=== PATIENT | female | born 1985 | race Caucasian/White ===

== ENCOUNTER 2022-07-25 22:25 | Inpatient (IN) | payer MEDICARE, MEDICAID, SELFPAY ==
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
[2022-07-25 22:51] VITALS: BP 155/96; PULSE 97; RESP 16; TEMP 36.6
[2022-07-25 23:03] VITALS: BMI 21.6
--- NOTE | 2022-07-26 02:30 | PC.ADMIT ---
Patient is a 36 year old Chilean speaking woman that was seen at [facility] secondary to suicide attempt she reported that she took less than a palmful of Flexeril .She arrived on [facility] at 22:30 on 07/25/22 via ambulance stretcher. She denies previous admission to behavioral health. CV was signed and covid negative . She is pleasant and cooperative She has a history of substance abuse and a long standing chronic illnesses including liver disease and kidney failure which she said she was in the hospital on hospice for 5 months but was able to be released.
[2022-07-26 08:35] VITALS: BP 115/57; PULSE 71; RESP 16; TEMP 36.8; O2SAT 100
[2022-07-26] MEDS: Nicotine 14 MG PATCH.TD24 TRANSDERMA (11:32)
[2022-07-26] MEDS: Cyclobenzaprine HCl 5 MG TABLET PO (12:51)
[2022-07-26] MEDS: hydrOXYzine HCL 25 MG TABLET PO ×2 (12:51→17:11)
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
[2022-07-26 13:30] LABS: MANUAL DIFF FLAG NO
[2022-07-26 13:38] LABS: Basophils Percent Auto 0.8 % (0-2); Eosinophils Absolute Auto 0.2 X10*3/uL (0.0-0.4); Eosinophils Percent Auto 4.4 % (0-4); Hematocrit 41.6 % (37.0-47.0); Hemoglobin 14.8 g/dl (12.0-16.0); Imm Gran Abs Auto 0.03 X10*3/uL (0.00-0.03); Imm Gran Pct Auto 0.8 % (0.0-0.4); Lymphocytes Absolute Auto 0.8 X10*3/uL (1.2-4.9); Lymphocytes Percent Auto 22.8 % (20-40); Mean Corpuscular HGB Conc 35.6 g/dl (31.0-35.0); Mean Corpuscular Hemoglobin 36.7 pg (27.0-33.0); Mean Corpuscular Volume 103.2 fL (80.0-98.0); Mean Platelet Volume 10.3 fL (9.4-12.3); Monocytes Absolute Auto 0.3 X10*3/uL (0.1-1.2); Monocytes Percent Auto 7.7 % (2-11); Neutrophils Absolute Auto 2.3 x10*3/uL (2.0-8.3); Neutrophils Percent Auto 63.5 % (45-73); Platelet Count 129 X10*3/uL (160-400); Red Blood Count 4.03 X10*6/uL (4.20-5.50); Red Cell Distribution Width 13.3 % (11.0-16.0); White Blood Count 3.6 X10*3/uL (4.8-10.8)
[2022-07-26 14:22] LABS: Alanine Aminotransferase 128 U/L (0-31); Albumin Level 3.9 g/dL (3.5-5.0); Alkaline Phosphatase 82 U/L (39-117); Aspartate Amino Transferase 138 U/L (5-31); Bilirubin Direct 0.2 mg/dL (0.0-0.5); Bilirubin Total 0.9 mg/dL (0.0-1.0); Total Protein 6.4 g/dL (6.5-8.0)
--- NOTE | 2022-07-26 15:09 | PC.NURSE ---
Patient has pre-existing conditions resulting in use of a mat under her mattress. Medical bed may be required-per MD
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
[2022-07-26] MEDS: Albuterol Sulfate 90 MCG 8 GM INHALER 2 PUFF INHALE (17:30)
[2022-07-26 18:00] VITALS: BP 150/87; PULSE 107; RESP 16; TEMP 37.5; O2SAT 100
[2022-07-26] MEDS: Mirtazapine 7.5 MG TABLET PO (20:30)
[2022-07-26] MEDS: Gabapentin 600 MG TABLET PO (20:30)
[2022-07-26] MEDS: traZODone HCL 50 MG TABLET PO ×2 (20:30→23:06)
[2022-07-27 06:00] VITALS: BP 121/58; PULSE 97; RESP 18; TEMP 36.8; O2SAT 100
[2022-07-27] MEDS: Lidocaine 4 % Patch ADH..PATCH 1 PATCH TRANSDERMA (08:50)
[2022-07-27] MEDS: Nicotine 14 MG PATCH.TD24 TRANSDERMA (08:50)
[2022-07-27] MEDS: Cyclobenzaprine HCl 5 MG TABLET PO ×2 (09:35→22:12)
[2022-07-27] MEDS: Ibuprofen 400 MG TABLET PO (09:37)
[2022-07-27 09:39] LABS: Estimated Average Glucose 82 mg/dL; Hemoglobin A1c % 4.5 %
[2022-07-27 10:07] LABS: HBS Num1 1.04 mIU/mL (0-7.99); HBc Num1 0.07 S/CO (0.00-0.79); HBsAGNum1 0.24 S/CO (0.00-0.99); HIV AB/AG Nonreactive (Nonreactive); HIV Num 1 0.07 S/CO (0.00-0.99); Hepatitis B Core Antibody Nonreactive (Nonreactive); Hepatitis B Surface Antigen Negative (Negative); ~HepC Num1 0.04 S/CO (0.00-0.79); ~Hepatitis B Surface Antibody NONREACTIVE (Nonreactive); ~Hepatitis C Antibody Nonreactive (Nonreactive)
[2022-07-27 10:14] LABS: Alanine Aminotransferase 137 U/L (0-31); Albumin Level 3.9 g/dL (3.5-5.0); Alkaline Phosphatase 86 U/L (39-117); Anion Gap 11 (12-20); Aspartate Amino Transferase 126 U/L (5-31); Bilirubin Total 0.6 mg/dL (0.0-1.0); Blood Urea Nitrogen 10 mg/dL (9-16); Calcium 9.4 mg/dL (8.4-10.2); Carbon Dioxide 28 mmol/L (22-29); Chloride 105 mmol/L (96-108); Cholesterol 201 mg/dL; Creatinine Clr Calc Pharmacy 71.9; Estimated Glomerular Filt Rate > 60; Glucose Fasting 107 mg/dL (60-99); HDL Cholesterol 94 mg/dL; LDL Cholesterol Calculated 94 mg/dl; Potassium 4.1 mmol/L (3.3-5.1); Sodium 140 mmol/L (135-145); Thyroid Stimulating Hormone 1.64 uIU/mL (0.32-4.0); Total Protein 5.9 g/dL (6.5-8.0); Triglycerides 65 mg/dL
[2022-07-27 10:25] LABS: Folate 9.2 ng/mL (> or = 4.0); Vitamin B12 393 pg/mL (200-900)
[2022-07-27 10:32] LABS: Folate 9.1 ng/mL (> or = 4.0); Vitamin B12 421 pg/mL (200-900)
[2022-07-27] MEDS: Albuterol Sulfate 90 MCG 8 GM INHALER 2 PUFF INHALE ×2 (14:04→19:47)
[2022-07-27 16:29] VITALS: BP 125/75; PULSE 101; TEMP 36.6; O2SAT 100
[2022-07-27] MEDS: hydrOXYzine HCL 25 MG TABLET PO (17:11)
--- NOTE | 2022-07-27 18:24 | HO.PSYCHPN ---
Subjective Subjective Date of Service: 07/27/22 Reason For Visit: other specified depressive disorder, alcohol use Subjective Notes: Conditional Voluntary Healthcare Proxy: No Guardianship: No Medical Problems Affecting Mental Status: No Interim History: Reports evening anxiety and insomnia. Discussed Prazosin trial. Discussed concerns about the loss of her children and potential loss of her home. Ex-husbands sister who took the children is a poor support pt reports-and she feels is angry with her. Medication Compliance: Yes Side effects from medications: No Attending Groups: Intermittent Review of Systems Acute medical concerns: No Medical Review of Systems: unchanged Mental Status Exam Mental Status Exam Patient Appearance: Appropriate Patient Orientation: Person, Place, Time and Situation Level of Consciousness: Alert Patient Behavior: Appropriate, Talkative, Cooperative and Good Eye Contact Mood Description: Depressed and Flat Affect Description: Flat Patient Cognition Impaired: No Ability to Follow Directions: Good Speech Pattern: Spontaneous Speech Memory Description: Intact and Episodic Impaired Hallucinations: None Delusions: Not Present Perceptual Disturbances: Depersonalization and Derealization Thought Process: Rumination Thought Content: positive for Suicidal Ideation Depressive Symptoms: Increased Anxiety, Insomnia, Diff. Making Decisions, Hopelessness, Unhappiness, Increased Fatigue, Low Self Esteem and Loss of Energy Judgement: Poor Diagnostics Vital Signs (24Hr): Vital Signs - 24 hr 07/27/22 06:00 07/27/22 16:29 Temperature 98.3 F 97.9 F Pulse Rate 97 101 H Respiratory Rate 18 Blood Pressure 121/58 L 125/75 Pulse Oximetry 100 100 Oxygen Delivery Method Room Air Room Air BMI result Body Mass Index 21.6 Labs Results: 07/26/22 13:26 07/27/22 08:37 Labs: Laboratory Results - last 48 hr 07/26/22 07/26/22 07/26/22 13:26 13:26 13:26 WBC 3.6 L RBC 4.03 L Hgb 14.8 Hct 41.6 MCV 103.2 H MCH 36.7 H MCHC 35.6 H RDW 13.3 Plt Count 129 L MPV 10.3 Immature Gran % (Auto) 0.8 H Neut % (Auto) 63.5 Lymph % (Auto) 22.8 [place] % (Auto) 7.7 Eos % (Auto) 4.4 H Baso % (Auto) 0.8 Lymph # (Auto) 0.8 L [place] # (Auto) 0.3 Eos # (Auto) 0.2 Baso # (Auto) 0.0 Abs Immat Gran (auto) 0.03 Absolute Neuts (auto) 2.3 Absolute Nucleated RBC 0.000 Nucleated RBC % (auto) 0.0 Sodium Potassium Chloride Carbon Dioxide Anion Gap BUN Creatinine Estim Creat Clear Calc Estimated GFR Fasting Glucose Estimat Average Glucose Hemoglobin A1c % Calcium Total Bilirubin 0.9 Direct Bilirubin 0.2 AST 138 H ALT 128 H Alkaline Phosphatase 82 Total Protein 6.4 L Albumin 3.9 Triglycerides Cholesterol LDL Cholesterol, Calc HDL Cholesterol Vitamin B12 TNP Folate TNP TSH Hep Bs Antigen Hep Bs Antibody Hep B Core Total Ab Hepatitis C Ab (EIA) HIV 1&2 Ab/P24 Ag 4thGn 07/27/22 07/27/22 07/27/22 08:37 08:37 08:37 WBC RBC Hgb Hct MCV MCH MCHC RDW Plt Count MPV Immature Gran % (Auto) Neut % (Auto) Lymph % (Auto) [place] % (Auto) Eos % (Auto) Baso % (Auto) Lymph # (Auto) [place] # (Auto) Eos # (Auto) Baso # (Auto) Abs Immat Gran (auto) Absolute Neuts (auto) Absolute Nucleated RBC Nucleated RBC % (auto) Sodium 140 Potassium 4.1 Chloride 105 Carbon Dioxide 28 Anion Gap 11 L BUN 10 Creatinine 0.73 Estim Creat Clear Calc 71.9 Estimated GFR > 60 Fasting Glucose 107 H Estimat Average Glucose Hemoglobin A1c % Calcium 9.4 Total Bilirubin 0.6 Direct Bilirubin AST 126 H ALT 137 H Alkaline Phosphatase 86 Total Protein 5.9 L Albumin 3.9 Triglycerides 65 Cholesterol 201 LDL Cholesterol, Calc 94 HDL Cholesterol 94 Vitamin B12 421 Folate 9.1 TSH 1.64 Hep Bs Antigen Negative Hep Bs Antibody NONREACTIVE Hep B Core Total Ab Nonreactive Hepatitis C Ab (EIA) Nonreactive HIV 1&2 Ab/P24 Ag 4thGn Nonreactive 07/27/22 07/27/22 08:37 08:37 WBC RBC Hgb Hct MCV MCH MCHC RDW Plt Count MPV Immature Gran % (Auto) Neut % (Auto) Lymph % (Auto) [place] % (Auto) Eos % (Auto) Baso % (Auto) Lymph # (Auto) [place] # (Auto) Eos # (Auto) Baso # (Auto) Abs Immat Gran (auto) Absolute Neuts (auto) Absolute Nucleated RBC Nucleated RBC % (auto) Sodium Potassium Chloride Carbon Dioxide Anion Gap BUN Creatinine Estim Creat Clear Calc Estimated GFR Fasting Glucose Estimat Average Glucose 82 Hemoglobin A1c % 4.5 Calcium Total Bilirubin Direct Bilirubin AST ALT Alkaline Phosphatase Total Protein Albumin Triglycerides Cholesterol LDL Cholesterol, Calc HDL Cholesterol Vitamin B12 393 Folate 9.2 TSH Hep Bs Antigen Hep Bs Antibody Hep B Core Total Ab Hepatitis C Ab (EIA) HIV 1&2 Ab/P24 Ag 4thGn Medications Medications Current Medications Al Hydroxide/Mg Hydroxide (Magnesium Hydrox/Alum Hydrox 30 Ml Oral.Susp) 30 ml PO Q6H PRN PRN Reason: Heartburn/Nausea Albuterol Sulfate (Albuterol Sulfate 90 Mcg 8 Gm Inhaler) 2 puff INHALE RQ4H PRN PRN Reason: shorss of breath or wheez Last Admin: 07/27/22 14:04 Dose: 2 puff Cyclobenzaprine HCl (Cyclobenzaprine Hcl 5 Mg Tablet) 5 mg PO TID PRN PRN Reason: Back Spasm Last Admin: 07/27/22 09:35 Dose: 5 mg Gabapentin (Gabapentin 600 Mg Tablet) 600 mg PO BEDTIME TA Last Admin: 07/26/22 20:30 Dose: 600 mg Hydroxyzine HCl (Hydroxyzine Hcl 25 Mg Tablet) 25 mg PO Q6H PRN PRN Reason: Anxiety Last Admin: 07/27/22 17:11 Dose: 25 mg Ibuprofen (Ibuprofen 400 Mg Tablet) 400 mg PO Q6H PRN PRN Reason: pain/fever Last Admin: 07/27/22 09:37 Dose: 400 mg Lidocaine (Lidocaine 4 % Patch Adh..Patch) 1 patch TRANSDERMA DAILY [facility]; Protocol Last Admin: 07/27/22 08:50 Dose: 1 patch Lorazepam (Lorazepam 1 Mg Tablet) 1 mg PO Q2H PRN PRN Reason: CIWA 8-11 Lorazepam (Lorazepam 1 Mg Tablet) 2 mg PO Q2H PRN PRN Reason: CIWA 12-15 Lorazepam (Lorazepam 1 Mg Tablet) 3 mg PO Q2H PRN PRN Reason: CIWA > 15 and call Magnesium Hydroxide (Milk Of Magnesia 30 Ml Oral.Susp) 30 ml PO DAILY PRN PRN Reason: Constipation Mirtazapine (Mirtazapine 7.5 Mg Tablet) 7.5 mg PO BEDTIME TA Last Admin: 07/26/22 20:30 Dose: 7.5 mg Nicotine (Nicotine 14 Mg Patch.Td24) 14 mg TRANSDERMA DAILY TA Last Admin: 07/27/22 08:50 Dose: 14 mg Prazosin HCl (Prazosin Hcl 1 Mg Capsule) 1 mg PO BEDTIME TA; Protocol Trazodone HCl (Trazodone Hcl 50 Mg Tablet) 50 mg PO BEDTIME PRN PRN Reason: Insomnia Last Admin: 07/26/22 23:06 Dose: 50 mg Allergies Allergies Allergy/AdvReac Type Severity Reaction Status Date / Time acetaminophen Allergy Unknown Unknown Verified 07/25/22 23:01 aspirin Allergy Unknown Verified 07/25/22 23:02 latex Allergy Unknown Verified 07/25/22 23:02 morphine Allergy Unknown Verified 07/25/22 23:02 Sulfa (Sulfonamide Allergy Unknown Verified 07/25/22 23:02 Antibiotics) Assessment & Plan Assessment & Plan (1) Alcohol use disorder, severe, dependence: Status: Acute Code(s): F10.20 - Alcohol dependence, uncomplicated (2) PTSD (post-traumatic stress disorder): Status: Acute Code(s): F43.10 - Post-traumatic stress disorder, unspecified (3) Recurrent major depression-severe: Status: Acute Code(s): F33.2 - Major depressive disorder, recurrent severe without psychotic features Plan 36 yo female, hx of alcohol use disorder, PTSD, depression, s/p overdose of flexoril. Tox positive for alcohol, cocaine, opiates, oxycodone. Several stressors. 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 She has just completed a 5 month rehab with admission and discharge from hospice for chronic liver disease. Plan: Re-establish current regime. Call to [facility]-they last filled for pt 2020. Continue albuterol, gabapentin, mirtazapine Collateral contact with pt's mother completed. Await further labs 07/28/22: Prazosin 1 mg hs I spent minutes with the patient and/or on the patient floor today, greater than?50% of which was spent counseling/coordinating care. Patient educated on: medication risk/benefits and therapeutic strategies Informed Consent: further education needed Reason for contiued inpatient stay Substantial Risk for: med/psych decompensation Time Spent With Patient Time: Total time managing care of this patient today __30__ minutes.
[2022-07-27] MEDS: Prazosin HCL 1 MG CAPSULE PO (22:10)
[2022-07-27] MEDS: Mirtazapine 7.5 MG TABLET PO (22:11)
[2022-07-27] MEDS: Gabapentin 600 MG TABLET PO (22:11)
[2022-07-27 22:18] VITALS: BP 141/84
[2022-07-28 08:30] VITALS: BP 117/66; PULSE 88; TEMP 37.1
[2022-07-28] MEDS: Nicotine 14 MG PATCH.TD24 TRANSDERMA (08:53)
[2022-07-28] MEDS: Lidocaine 4 % Patch ADH..PATCH 1 PATCH TRANSDERMA (08:54)
[2022-07-28] MEDS: hydrOXYzine HCL 25 MG TABLET PO (11:10)
[2022-07-28] MEDS: Cyclobenzaprine HCl 5 MG TABLET PO ×2 (11:10→22:01)
[2022-07-28] MEDS: Albuterol Sulfate 90 MCG 8 GM INHALER 2 PUFF INHALE ×2 (13:18→20:51)
[2022-07-28 18:00] VITALS: BP 133/76; PULSE 109; TEMP 36.8; O2SAT 100
--- NOTE | 2022-07-28 18:48 | HO.PSYCHPN ---
Subjective Subjective Date of Service: 07/28/22 Reason For Visit: other specified depressive disorder, alcohol use Subjective Notes: Conditional Voluntary and 3 Day Healthcare Proxy: No Guardianship: No Medical Problems Affecting Mental Status: No Interim History: Discussion of three day notice, longer term treatment, section 35 and pt's goals. Discussed her will to live, return to her children. Believes alliance with out patient resources-therapy, psychiatry will be the most helpful-therapy especially. Discussed discharge vs Section 35 vs residential placement, pros, cons of each treatment choice. Medication Compliance: Yes Side effects from medications: No Attending Groups: Intermittent Review of Systems Acute medical concerns: No Medical Review of Systems: unchanged Mental Status Exam Mental Status Exam Patient Appearance: Appropriate Patient Orientation: Person, Place, Time and Situation Level of Consciousness: Alert Patient Behavior: Appropriate, Talkative, Cooperative and Good Eye Contact Mood Description: Depressed and Flat Affect Description: Flat Patient Cognition Impaired: No Ability to Follow Directions: Good Speech Pattern: Spontaneous Speech Memory Description: Intact and Episodic Impaired Hallucinations: None Delusions: Not Present Perceptual Disturbances: Depersonalization and Derealization Thought Process: Rumination Thought Content: positive for Suicidal Ideation Depressive Symptoms: Increased Anxiety, Insomnia, Diff. Making Decisions, Hopelessness, Unhappiness, Increased Fatigue, Low Self Esteem and Loss of Energy Judgement: Poor Diagnostics Vital Signs (24Hr): Vital Signs - 24 hr 07/27/22 22:18 07/28/22 08:30 Temperature 98.7 F Pulse Rate 88 Blood Pressure 141/84 H 117/66 BMI result Body Mass Index 21.6 Labs Results: 07/26/22 13:26 07/27/22 08:37 Labs: Laboratory Results - last 48 hr 07/27/22 07/27/22 07/27/22 08:37 08:37 08:37 Sodium 140 Potassium 4.1 Chloride 105 Carbon Dioxide 28 Anion Gap 11 L BUN 10 Creatinine 0.73 Estim Creat Clear Calc 71.9 Estimated GFR > 60 Fasting Glucose 107 H Estimat Average Glucose Hemoglobin A1c % Calcium 9.4 Total Bilirubin 0.6 AST 126 H ALT 137 H Alkaline Phosphatase 86 Total Protein 5.9 L Albumin 3.9 Triglycerides 65 Cholesterol 201 LDL Cholesterol, Calc 94 HDL Cholesterol 94 Vitamin B12 421 Folate 9.1 TSH 1.64 Hep Bs Antigen Negative Hep Bs Antibody NONREACTIVE Hep B Core Total Ab Nonreactive Hepatitis C Ab (EIA) Nonreactive HIV 1&2 Ab/P24 Ag 4thGn Nonreactive 07/27/22 07/27/22 08:37 08:37 Sodium Potassium Chloride Carbon Dioxide Anion Gap BUN Creatinine Estim Creat Clear Calc Estimated GFR Fasting Glucose Estimat Average Glucose 82 Hemoglobin A1c % 4.5 Calcium Total Bilirubin AST ALT Alkaline Phosphatase Total Protein Albumin Triglycerides Cholesterol LDL Cholesterol, Calc HDL Cholesterol Vitamin B12 393 Folate 9.2 TSH Hep Bs Antigen Hep Bs Antibody Hep B Core Total Ab Hepatitis C Ab (EIA) HIV 1&2 Ab/P24 Ag 4thGn Imaging Radiology Impressions: ITS Impressions Knee X-Ray 07/26/22 13:55 IMPRESSION: Normal right knee. Ribs X-Ray 07/26/22 13:55 IMPRESSION: Clear lungs. No focal rib abnormality identified. Medications Medications Current Medications Al Hydroxide/Mg Hydroxide (Magnesium Hydrox/Alum Hydrox 30 Ml Oral.Susp) 30 ml PO Q6H PRN PRN Reason: Heartburn/Nausea Albuterol Sulfate (Albuterol Sulfate 90 Mcg 8 Gm Inhaler) 2 puff INHALE RQ4H PRN PRN Reason: shorss of breath or wheez Last Admin: 07/28/22 13:18 Dose: 2 puff Cyclobenzaprine HCl (Cyclobenzaprine Hcl 5 Mg Tablet) 5 mg PO TID PRN PRN Reason: Back Spasm Last Admin: 07/28/22 11:10 Dose: 5 mg Gabapentin (Gabapentin 600 Mg Tablet) 600 mg PO BEDTIME TA Last Admin: 07/27/22 22:11 Dose: 600 mg Hydroxyzine HCl (Hydroxyzine Hcl 25 Mg Tablet) 25 mg PO Q6H PRN PRN Reason: Anxiety Last Admin: 07/28/22 11:10 Dose: 25 mg Ibuprofen (Ibuprofen 400 Mg Tablet) 400 mg PO Q6H PRN PRN Reason: pain/fever Last Admin: 07/27/22 09:37 Dose: 400 mg Lidocaine (Lidocaine 4 % Patch Adh..Patch) 1 patch TRANSDERMA DAILY TA; Protocol Last Admin: 07/28/22 08:54 Dose: 1 patch Lorazepam (Lorazepam 1 Mg Tablet) 1 mg PO Q2H PRN PRN Reason: CIWA 8-11 Lorazepam (Lorazepam 1 Mg Tablet) 2 mg PO Q2H PRN PRN Reason: CIWA 12-15 Lorazepam (Lorazepam 1 Mg Tablet) 3 mg PO Q2H PRN PRN Reason: CIWA > 15 and call Magnesium Hydroxide (Milk Of Magnesia 30 Ml Oral.Susp) 30 ml PO DAILY PRN PRN Reason: Constipation Mirtazapine (Mirtazapine 7.5 Mg Tablet) 7.5 mg PO BEDTIME TA Last Admin: 07/27/22 22:11 Dose: 7.5 mg Nicotine (Nicotine 14 Mg Patch.Td24) 14 mg TRANSDERMA DAILY TA Last Admin: 07/28/22 08:53 Dose: 14 mg Prazosin HCl (Prazosin Hcl 1 Mg Capsule) 1 mg PO BEDTIME TA; Protocol Last Admin: 07/27/22 22:10 Dose: 1 mg Trazodone HCl (Trazodone Hcl 50 Mg Tablet) 50 mg PO BEDTIME PRN PRN Reason: Insomnia Last Admin: 07/26/22 23:06 Dose: 50 mg Allergies Allergies Allergy/AdvReac Type Severity Reaction Status Date / Time acetaminophen Allergy Unknown Unknown Verified 07/25/22 23:01 aspirin Allergy Unknown Verified 07/25/22 23:02 latex Allergy Unknown Verified 07/25/22 23:02 morphine Allergy Unknown Verified 07/25/22 23:02 Sulfa (Sulfonamide Allergy Unknown Verified 07/25/22 23:02 Antibiotics) Assessment & Plan Assessment & Plan (1) Alcohol use disorder, severe, dependence: Status: Acute Code(s): F10.20 - Alcohol dependence, uncomplicated (2) PTSD (post-traumatic stress disorder): Status: Acute Code(s): F43.10 - Post-traumatic stress disorder, unspecified (3) Recurrent major depression-severe: Status: Acute Code(s): F33.2 - Major depressive disorder, recurrent severe without psychotic features Plan 36 yo female, hx of alcohol use disorder, PTSD, depression, s/p overdose of flexoril. Tox positive for alcohol, cocaine, opiates, oxycodone. Several stressors. Pt has been non compliant with medications [employer]. She has just completed a 5 month rehab with admission and discharge from hospice for chronic liver disease. Plan: Re-establish current regime. Call to [facility]-they last filled for pt 2020. Continue albuterol, gabapentin, mirtazapine Collateral contact with pt's mother completed. Await further labs 07/27/22: Prazosin 1 mg hs 07/28/22: No changes in regime-Planning for discharge 07/29 as TDN expires. Patient educated on: diagnosis, medication risk/benefits, substance abuse and therapeutic strategies Informed Consent: understands and further education needed Reason for contiued inpatient stay Substantial Risk for: rapid decompensation and med/psych decompensation Time Spent With Patient Time: Total time managing care of this patient today __35__ minutes.
[2022-07-28] MEDS: Gabapentin 600 MG TABLET PO (22:02)
[2022-07-28] MEDS: Mirtazapine 7.5 MG TABLET PO (22:02)
[2022-07-28] MEDS: Prazosin HCL 1 MG CAPSULE PO (22:02)
[2022-07-29 08:55] VITALS: BP 123/78; PULSE 99; TEMP 37
[2022-07-29] MEDS: Nicotine 14 MG PATCH.TD24 TRANSDERMA (09:06)
[2022-07-29] MEDS: Lidocaine 4 % Patch ADH..PATCH 1 PATCH TRANSDERMA (09:06)
--- NOTE | 2022-07-29 12:05 | P.DS_ITS ---
DS: Providers Provider Date of Service: 07/29/22 Date of admission: 07/25/22 22:25 Date of discharge: 07/29/22 Primary care physician: Unknown Physician Admitting clinician: Naomi Amador Attending physician on admission: Ranulfo Salazar Consults: 07/26/22 00:43 Consult to Hospitalist Routine Consulting Provider: Hospitalist Reason For Exam: new H&P Attending physician on discharge: Ranulfo Salazar Discharging clinician: Naomi Amador DS: Diagnosis Discharge Diagnosis (1) Alcohol use disorder, severe, dependence: Status: Acute (2) PTSD (post-traumatic stress disorder): Status: Acute (3) Recurrent major depression-severe: Status: Acute DS: Medications Discharge Medications Home Medications: Previous Rx's Medication Instructions Recorded albuterol sulfate 90 mcg/actuation 2 puff inhalation RQ4H PRN shorss 07/29/22 aerosol inhaler (Ventolin HFA) of breath or wheez #1 inhaler gabapentin 600 mg tablet 600 mg PO BEDTIME #7 tabs 07/29/22 lidocaine 4 % topical patch 1 patch transdermal DAILY #7 ea 07/29/22 (Lidocaine Pain Relief) mirtazapine 7.5 mg tablet 7.5 mg PO BEDTIME #7 tabs 07/29/22 nicotine 14 mg/24 hr daily 14 mg transdermal DAILY #30 ea 07/29/22 transdermal patch prazosin 1 mg capsule 1 mg PO BEDTIME #7 caps 07/29/22 trazodone 50 mg tablet 50 mg PO BEDTIME PRN Insomnia #7 07/29/22 tabs Mental Status Exam Mental Status Exam Patient Appearance: Appropriate Patient Orientation: Person, Place, Time and Situation Level of Consciousness: Alert Patient Behavior: Appropriate, Talkative, Cooperative and Good Eye Contact Mood Description: Depressed and Flat Affect Description: Flat Patient Cognition Impaired: No Ability to Follow Directions: Good Speech Pattern: Spontaneous Speech Memory Description: Intact and Episodic Impaired Hallucinations: None Delusions: Not Present Perceptual Disturbances: Depersonalization and Derealization Thought Process: Rumination Thought Content: positive for Suicidal Ideation Depressive Symptoms: Increased Anxiety, Insomnia, Diff. Making Decisions, Hopelessness, Unhappiness, Increased Fatigue, Low Self Esteem and Loss of Energy Judgement: Poor Data Data Completed and Pending Completed studies during hospitalization [Text1]: 12/07/26/22 07/26/22 13:26 13:26 13:26 WBC 3.6 L RBC 4.03 L Hgb 14.8 Hct 41.6 MCV 103.2 H MCH 36.7 H MCHC 35.6 H RDW 13.3 Plt Count 129 L MPV 10.3 Immature Gran % (Auto) 0.8 H Neut % (Auto) 63.5 Lymph % (Auto) 22.8 [place] % (Auto) 7.7 Eos % (Auto) 4.4 H Baso % (Auto) 0.8 Lymph # (Auto) 0.8 L [place] # (Auto) 0.3 Eos # (Auto) 0.2 Baso # (Auto) 0.0 Abs Immat Gran (auto) 0.03 Absolute Neuts (auto) 2.3 Absolute Nucleated RBC 0.000 Nucleated RBC % (auto) 0.0 Sodium Potassium Chloride Carbon Dioxide Anion Gap BUN Creatinine Estim Creat Clear Calc Estimated GFR Fasting Glucose Estimat Average Glucose Hemoglobin A1c % Calcium Total Bilirubin 0.9 Direct Bilirubin 0.2 AST 138 H ALT 128 H Alkaline Phosphatase 82 Total Protein 6.4 L Albumin 3.9 Triglycerides Cholesterol LDL Cholesterol, Calc HDL Cholesterol Vitamin B12 TNP Folate TNP TSH Hep Bs Antigen Hep Bs Antibody Hep B Core Total Ab Hepatitis C Ab (EIA) HIV 1&2 Ab/P24 Ag 4thGn 07/27/22 07/27/22 07/27/22 08:37 08:37 08:37 WBC RBC Hgb Hct MCV MCH MCHC RDW Plt Count MPV Immature Gran % (Auto) Neut % (Auto) Lymph % (Auto) [place] % (Auto) Eos % (Auto) Baso % (Auto) Lymph # (Auto) [place] # (Auto) Eos # (Auto) Baso # (Auto) Abs Immat Gran (auto) Absolute Neuts (auto) Absolute Nucleated RBC Nucleated RBC % (auto) Sodium 140 Potassium 4.1 Chloride 105 Carbon Dioxide 28 Anion Gap 11 L BUN 10 Creatinine 0.73 Estim Creat Clear Calc 71.9 Estimated GFR > 60 Fasting Glucose 107 H Estimat Average Glucose Hemoglobin A1c % Calcium 9.4 Total Bilirubin 0.6 Direct Bilirubin AST 126 H ALT 137 H Alkaline Phosphatase 86 Total Protein 5.9 L Albumin 3.9 Triglycerides 65 Cholesterol 201 LDL Cholesterol, Calc 94 HDL Cholesterol 94 Vitamin B12 421 Folate 9.1 TSH 1.64 Hep Bs Antigen Negative Hep Bs Antibody NONREACTIVE Hep B Core Total Ab Nonreactive Hepatitis C Ab (EIA) Nonreactive HIV 1&2 Ab/P24 Ag 4thGn Nonreactive 07/27/22 07/27/22 08:37 08:37 WBC RBC Hgb Hct MCV MCH MCHC RDW Plt Count MPV Immature Gran % (Auto) Neut % (Auto) Lymph % (Auto) [place] % (Auto) Eos % (Auto) Baso % (Auto) Lymph # (Auto) [place] # (Auto) Eos # (Auto) Baso # (Auto) Abs Immat Gran (auto) Absolute Neuts (auto) Absolute Nucleated RBC Nucleated RBC % (auto) Sodium Potassium Chloride Carbon Dioxide Anion Gap BUN Creatinine Estim Creat Clear Calc Estimated GFR Fasting Glucose Estimat Average Glucose 82 Hemoglobin A1c % 4.5 Calcium Total Bilirubin Direct Bilirubin AST ALT Alkaline Phosphatase Total Protein Albumin Triglycerides Cholesterol LDL Cholesterol, Calc HDL Cholesterol Vitamin B12 393 Folate 9.2 TSH Hep Bs Antigen Hep Bs Antibody Hep B Core Total Ab Hepatitis C Ab (EIA) HIV 1&2 Ab/P24 Ag 4thGn Imaging Diagnostic Imaging Impressions Knee X-Ray 07/26/22 13:55 IMPRESSION: Normal right knee. Ribs X-Ray 07/26/22 13:55 IMPRESSION: Clear lungs. No focal rib abnormality identified. DS: Summary Hospital Course Hospital Course: Admission to adult psychiatry for exacerbation of depression, alcohol use disorder and psychosocial stressors. Family reports a long treatment history, with recent discharge from Hospice services as she had improved while in care. Pt reports she wants to live and be available to her children. Gabapentin, Mirtazapine, Prazosin and Trazodone were adjusted. Pt declined referral to residential treatment as she is going to trial x 2, one during this admission which needed to be rescheduled, one in August 2022. She also is in process of home foreclosure. She accepted residential resources and may contact these resources in the future when she has settled these legal issues. Time spent discussing smoking cessation with patient: 3 to 10 minutes Status at Discharge Functional status at discharge: independent ambulation Overall status at discharge: patient is back to baseline Time Spent with Patient Time attestation: Total time managing care of this patient today ____ minutes. 35 Time spent: Greater than 30 minutes Discharge Plan Discharge Anticipated Discharge Date/Time: 07/29/22 14:46 Patient Disposition: Home, Self-Care Discharge Diagnosis: PTSD Recurrent Major Depression, Severe Alcohol Use Disorder, Severe, Dependence Referrals: clinical and support options [Other] - 08/11/22 11:00 am (Initial Intake for outpatient therapy and psychiatry services. Appointment is by [facility] (Tele-Health)) Heidi Mayen NP [Nurse Practitioner] - 1 Week (OFFICE AWARE OF PT. D/C WILL CALL US BACK OR PT. FOR FOLLOW UP APPOINTMENT . WE WILL FAX D/C PAPER .) Discharge Medications: New gabapentin 600 mg Tablet 600 mg PO BEDTIME Qty: 7 4RF nicotine 14 mg/24 hr Patch 24 Hour 14 mg transdermal DAILY Qty: 30 0RF lidocaine [Lidocaine Pain Relief] 4 % Adhesive Patch,Medicated 1 patch transdermal DAILY Qty: 7 4RF Protocol: Apply to: Apply to: left rib cage trazodone 50 mg Tablet 50 mg PO BEDTIME PRN (Reason: Insomnia) Qty: 7 4RF prazosin 1 mg Capsule 1 mg PO BEDTIME Qty: 7 4RF Protocol: Hold for SBP< HOLD for SBP < : 90 albuterol sulfate [Ventolin HFA] 90 mcg/actuation Hfa Aerosol Inhaler 2 puff inhalation RQ4H PRN (Reason: shorss of breath or wheez) Qty: 1 0RF mirtazapine 7.5 mg Tablet 7.5 mg PO BEDTIME Qty: 7 4RF Discharge Orders: Discharge Order (Routine); Ordered 07/29/22 Ordered By: Naomi Amador Diet: Advance to usual diet Activity on Discharge: As tolerated Stand Alone Forms: Patient Portal Discharge page, Community Support Care Plan Goals: Maintain mood and safe behaviors Take medication as directed Practice coping skills Attend follow up appointments with providers Continue work on sobriety Health Concerns: Stable mood and behaviors Sobriety Plan of Treatment: Follow up with out patient scheduled appointments Call and/or return as needed Take medications as directed Assessment: Pt interviewed prior to discharge and found to be oriented and without SI/HI Pt has insight and demonstrates good judgment in terms of wanting to pursue treatment. Pt is not in imminent risk of harm to self or others and has a safety plan that includes presenting to the closest ER or calling 911 if feeling unsafe Pt has been observed closely by nursing staff throughout admission. Pt has not engaged in any behaviors which suggest dangerousness to self or others and has demonstrated appropriate behaviors and impulse control. Pt has discussed treatment options for addiction and at this time she declines residential referrals, as she has two trials upcoming-one which she missed this week, and one in early August. She also is in process of needing to foreclose on her home which she needs to be present for. She is aware that residential options exist and will consider these once her legal issues are resolved. We discussed her possibly calling [facility] [address] [address] for longer term care. Discharge Date/Time: 07/29/22 14:25
== END 2022-07-29 14:25 | disposition home or self-care (01) | DRG 885 ==
PROVIDERS: Family Medicine; Social Worker; Admitting Provider Psychiatry & Neurology Psychiatry; Visit Provider Clinical Nurse Specialist Psychiatric/Mental Health, Adult
DX: F33.2 Major depressive disorder, recurrent severe without psychotic features (principal); F10.20 Alcohol dependence, uncomplicated; F43.10 Post-traumatic stress disorder, unspecified; Z20.822 Contact with and (suspected) exposure to COVID-19; Z91.040 Latex allergy status; Z91.51 Personal history of suicidal behavior; Z88.2 Allergy status to sulfonamides; Z88.5 Allergy status to narcotic agent; Z88.6 Allergy status to analgesic agent; Z79.899 Other long term (current) drug therapy
CPT/HCPCS: 36415; 71101; 73562; 80053; 80061; 80076; 82607; 82746; 83036; 84443; 85025; 86704; 86706; 86803; 87340; 87389

== ENCOUNTER 2023-06-06 21:22 | Emergency (ER) | payer MEDICARE, MEDICAID, SELFPAY ==
--- NOTE | ~2023-06-06 | XR_ITS ---
EXAMINATION: XR KNEE, RIGHT CLINICAL INFORMATION: Pain. COMPARISON: None available. TECHNIQUE: Four views of the right knee. FINDINGS: No fracture or joint effusion. Alignment is anatomic. Joint spaces are maintained. No abnormal soft tissue calcification. XR/XR knee RT 3V IMPRESSION: No significant abnormality identified.
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
[2023-06-06 21:35] VITALS: BP 145/85; BP 150/100; PULSE 109; PULSE 113; RESP 24; O2SAT 96; O2SAT 97; BMI 22.2
--- NOTE | 2023-06-06 21:40 | MHC.EDTECH ---
Patient changed over
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
--- NOTE | 2023-06-06 21:50 | PC.NURSE ---
pt very tearful upon arrival. pt placed on cardiac and spo2 monitor. pt denies Si/HI. pt denies SA. pt redirectable though notably upset. this rn made dr rizvi aware of pt status. pt awaiting to be sen by
--- NOTE | 2023-06-07 00:40 | PC.NURSE ---
pt sleeping positioned on back HR noted on monitor to be 107. lights dimmed to promote sleep
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
[2023-06-07] MEDS: traMADoL HCL 50 MG TABLET PO (01:46)
[2023-06-07 03:21] VITALS: BP 127/76; PULSE 96; RESP 21; TEMP 36.7; O2SAT 98
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
[2023-06-07] MEDS: Ibuprofen 600 MG TABLET PO (06:29)
--- NOTE | 2023-06-07 06:34 | PC.NURSE ---
pt able to reach mother. pt mother to pick pt up. this rn medicated pt according to mar. per rn charge pt okay to remain in bed 2 until ride arrives
--- NOTE | 2023-06-07 07:16 | PC.NURSE ---
pt provided with crutches and noel wrap by medical office technology instructor. pt noted to have full rom. pt medicated according to mar. pt provided with discharge packet. pt verbalized understanding of discharge plan pt utilized wheelchair to waiting room awaiting ride home from family member per ore charger who spoke with pt mother
[2023-06-07 07:19] VITALS: BP 118/78; PULSE 98; RESP 22; O2SAT 98
== END 2023-06-07 07:20 | disposition home or self-care (01) ==
PROVIDERS: Emergency Provider Internal Medicine
DX: S00.83XA Contusion of other part of head, initial encounter (principal); S60.211A Contusion of right wrist, initial encounter; S80.01XA Contusion of right knee, initial encounter; Y04.2XXA Assault by strike against or bumped into by another person, initial encounter; I10 Essential (primary) hypertension; Q05.9 Spina bifida, unspecified; F33.2 Major depressive disorder, recurrent severe without psychotic features; F43.10 Post-traumatic stress disorder, unspecified; F10.20 Alcohol dependence, uncomplicated; F17.210 Nicotine dependence, cigarettes, uncomplicated; Y93.9 Activity, unspecified; Y92.9 Unspecified place or not applicable; Y99.9 Unspecified external cause status; Z90.5 Acquired absence of kidney
CPT/HCPCS: 71101; 73562; 99283; 99284

== ENCOUNTER 2023-08-10 09:12 | Emergency (ER) | payer MEDICARE, MEDICAID, SELFPAY ==
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
[2023-08-10 09:38] VITALS: BP 119/61; BP 124/74; PULSE 113; PULSE 125; RESP 18; TEMP 36.7; O2SAT 94; O2SAT 96; BMI 22.5
[2023-08-10 13:11] VITALS: BP 118/75; PULSE 101; RESP 14; TEMP 36.2; O2SAT 97
--- NOTE | 2023-08-10 13:21 | PHA.MEDREC ---
Pharmacy Consult ? Medication Reconciliation Pharmacy has reviewed the medication reconciliation completed by Alisha
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
[2023-08-10 14:15] VITALS: RESP 18
== END 2023-08-10 16:18 | disposition home or self-care (01) ==
PROVIDERS: Emergency Provider Student in an Organized Health Care Education/Training Program
DX: F22 Delusional disorders (principal); F43.10 Post-traumatic stress disorder, unspecified; F14.950 Cocaine use, unspecified with cocaine-induced psychotic disorder with delusions; F33.2 Major depressive disorder, recurrent severe without psychotic features; F10.20 Alcohol dependence, uncomplicated; Y90.3 Blood alcohol level of 60-79 mg/100 ml; F17.210 Nicotine dependence, cigarettes, uncomplicated; Z11.52 Encounter for screening for COVID-19; Z79.899 Other long term (current) drug therapy
CPT/HCPCS: 80053; 80143; 80179; 80307; 81001; 81025; 85025; 87635; 99284; S9485

== ENCOUNTER 2023-08-20 02:29 | Emergency (ER) | payer MEDICARE, MEDICAID, SELFPAY ==
[2023-08-20] VITALS (12 sets, daily range): BP systolic 90–132; BP diastolic 49–75; PULSE 89–107; RESP 10–20; TEMP 36.3–36.6; O2SAT 88–99; BMI 18.3
--- NOTE | 2023-08-20 | ECG_ITS ---
Test Reason : OVERDOSE Blood Pressure : / mmHG Vent. Rate : 097 BPM Atrial Rate : 097 BPM P-R Int : 146 ms QRS Dur : 074 ms QT Int : 398 ms P-R-T Axes : 073 059 051 degrees QTc Int : 505 ms Normal sinus rhythm Possible Left atrial enlargement Prolonged QT Abnormal ECG No previous ECGs available Referred By: Generic ED Physician Electronically Signed By:ANA SANTANA MD
--- NOTE | ~2023-08-20 | XR_ITS ---
EXAMINATION: XR CHEST CLINICAL INFORMATION: Shortness of breath COMPARISON: 06/06/2023 TECHNIQUE: 2 views of the chest were obtained. FINDINGS: Moderate-sized gastric hernia again noted. Cardiac and mediastinal contours otherwise within normal limits given patient rotation. No pulmonary edema. Minor atelectasis overlying the hernia. No consolidation to suggest pneumonia. No effusion or pneumothorax. Lung volumes within normal limits. Nonobstructive gas pattern. No acute osseous finding. XR/XR chest 2V IMPRESSION: No acute cardiopulmonary process. Minor atelectasis overlying a known hiatal hernia.
[2023-08-20 03:13] LABS: Hematocrit 43.5 % (37.0-47.0); Hemoglobin 14.9 g/dl (12.0-16.0); Mean Corpuscular HGB Conc 34.3 g/dl (31.0-35.0); Mean Corpuscular Hemoglobin 35.3 pg (27.0-33.0); Mean Corpuscular Volume 103.1 fL (80.0-98.0); Mean Platelet Volume 9.2 fL (9.4-12.3); Platelet Count 187 X10*3/uL (160-400); Red Blood Count 4.22 X10*6/uL (4.20-5.50); Red Cell Distribution Width 13.5 % (11.0-16.0); White Blood Count 5.7 X10*3/uL (4.8-10.8)
[2023-08-20 03:26] LABS: Anion Gap 20 (12-20); Blood Urea Nitrogen 16 mg/dL (9-16); Calcium 8.8 mg/dL (8.4-10.2); Carbon Dioxide 17 mmol/L (22-29); Chloride 114 mmol/L (96-108); Estimated Glomerular Filt Rate > 60; Ethanol 257 mg/dL; Glucose Random 118 mg/dL (60-115); Potassium 3.6 mmol/L (3.3-5.1); Sodium 147 mmol/L (135-145)
--- NOTE | 2023-08-20 04:04 | ED_ITS ---
HPI - Overdose General Chief Complaint: Overdose Stated Complaint: OD Time Seen by Provider: 08/20/23 03:11 Source: patient and EMS Mode of arrival: EMS Limitations: altered mental status History of Present Illness HPI Narrative: 37-year-old female who was brought to emergency department for evaluation of an accidental overdose. The patient told paramedics that she drank vodka, use cocaine and took gabapentin 600 mg and tizanidine 2 mg. Patient was unresponsive and did respond to 8 mg of Narcan intranasally. The patient was brought to emergency department by EMS and when she arrived in the emergency department she became very combative and agitated and was not redirectable. The patient had to be placed in 4 point restraints in order to protect her and the staff. Related Data Home Medications Medication Instructions Recorded Confirmed albuterol sulfate 90 mcg/actuation 1 puff inhalation Q6H PRN wheezing 08/10/23 08/10/23 aerosol inhaler cyclobenzaprine 5 mg tablet 5 mg PO TID PRN Pain 08/10/23 08/10/23 Allergies Allergy/AdvReac Type Severity Reaction Status Date / Time acetaminophen Allergy Unknown Unknown Verified 07/25/22 23:01 aspirin Allergy Unknown Verified 07/25/22 23:02 latex Allergy Unknown Verified 07/25/22 23:02 morphine Allergy Unknown Verified 07/25/22 23:02 Sulfa (Sulfonamide Allergy Unknown Verified 07/25/22 23:02 Antibiotics) Review of Systems 2 Review of Systems: Yes Unobtainable due to mental status PMFSH Past Medical History Onset Date is defined in the Problem List Problems that require an onset date and time if occurred within 24 hrs of arrival to the ED Aortic Dissection and Rupture; Neurologic impairment; Cardiopulmonary Arrest; Endotracheal Intubation; Insertion or Replacement of Mechanical Circulatory Assist Device Medical History Recurrent major depression-severe PTSD (post-traumatic stress disorder) Alcohol use disorder, severe, dependence Intermittent asthma Spina bifida History of hypertension Migraine Solitary kidney, congenital Chronic back pain Seizure Surgical History History of hernia repair History of arthroscopic knee surgery Social History Social History Household Members: None Housing: House Do you presently have visiting nurse or other home services: No Patient Tobacco Use Status: Current everyday Tobacco user Tobacco use type: Cigarette Cigarette Packs Per Day: 1 Cigarettes Per Day: 20.0 Years Smoked: 27 e-Cigarette/Vaping Use: Never Used Second Hand Smoke Exposure: Yes Substance Use Type: Crack/Cocaine and Marijuana Advance Directives: No Advance Directives Information Provided: No service: No Sexual orientation: Straight/Heterosexual Physical Exam 2 Vital Signs: Vital Signs: Last Vital Signs Temp 97.4 F 08/20/23 07:23 Pulse 89 08/20/23 07:23 Resp 10 L 08/20/23 07:23 BP 90/49 L 08/20/23 07:23 Pulse Ox 97 08/20/23 07:23 O2 Del Method Room Air 08/20/23 07:23 O2 Flow Rate 2 08/20/23 04:44 BMI result Body Mass Index 18.3 Vital signs revealed an elevated heart rate of 107 Exam: General: Patient is somnolent but arousable to painful stimuli Head: Normocephalic, atraumatic EENT: Pupils are 7 mm and reactive to light, Lids normal, sclera normal, conjunctiva normal, nose normal , ears normal, throat without erythema or exudates Neck: Supple, no adenopathy, no trachea midline or C-spine tenderness Lung: breath sounds symmetric, no wheezing, rales or rhonchi Chest: symmetric movement, nontender Heart: regular rate and rhythm, normal S1, S2 no murmurs or rubs Abdomen: soft, non-tender, nondistended, normal bowel sounds Back: no vertebral tenderness, no CVAT Extremities: no deformities, moves all extremities symmetrically Neuro: Somnolent but arousable, oriented to person,ranial nerves intact, moves all extremities symmetrically Medical Decision Making Medical Decision Making MDM Narrative: 37-year-old female with a history of polysubstance use disorder, depression, PTSD, alcohol use, spina bifida, hypertension, migraines, chronic back pain, seizures who presents emergency department for evaluation of unintentional overdose. She did tell EMS that she took gabapentin 600 mg, tizanidine 2 mg, cocaine and drank vodka. Patient was unresponsive but did wake up after receiving 8 mg of intranasal Narcan. When she arrived in the emergency department, she became very combative while she was on the EMS stretcher and had to be restrained physically to protect her and the staff. When the patient was placed in the room she was somnolent but arousable and were able to take her out of restraints. Patient's pupils are now 7 mm, she is responsive to painful stimuli. Patient was placed on a cardiac, O2 saturation and end-tidal CO2 monitor Following laboratory evaluation was ordered: CBC, BMP, ethanol, drug screen, EKG 04:12 My interpretation patient's laboratory evaluation is as follows: CBC was normal except for an elevated MCV of 103.1-she is had similar elevations in the past- most likely secondary to alcohol use disorder. Sodium elevated 147, chloride elevated 114, bicarb low 17. Glucose elevated 118. Blood ethanol level elevated 257. Patient is awake and alert. She did tell me that she smoked cocaine and did drink alcohol. She is not interested in talking to a disaster recovery manager your crisis counselor. Patient will be discharged home with intranasal Narcan. Differential Diagnosis Differential Diagnoses: The differential diagnosis associated with the presentation includes Differential diagnosis includes was not limited to alcohol intoxication, polysubstance use disorder, opiate overdose, electrolyte abnormalities, anemia Admission/Observation Consideration of admission/observation: Escalation of care including admission/observation considered Lab Data MDM Lab Attestation statement: I reviewed the patient's lab results. 08/20/23 03:07 08/20/23 03:07 Labs: Lab Results 08/20/23 Range/Units 03:07 WBC 5.7 (4.8-10.8) X10*3/uL RBC 4.22 (4.20-5.50) X10*6/uL Hgb 14.9 (12.0-16.0) g/dl Hct 43.5 (37.0-47.0) % MCV 103.1 H (80.0-98.0) fL MCH 35.3 H (27.0-33.0) pg MCHC 34.3 (31.0-35.0) g/dl RDW 13.5 (11.0-16.0) % Plt Count 187 (160-400) X10*3/uL MPV 9.2 L (9.4-12.3) fL Absolute Nucleated RBC 0.000 (0.0-0.012) X10*3/uL Nucleated RBC % (auto) 0.0 (0.0-0.2) /100WBC Sodium 147 H (135-145) mmol/L Potassium 3.6 (3.3-5.1) mmol/L Chloride 114 H (96-108) mmol/L Carbon Dioxide 17 L (22-29) mmol/L Anion Gap 20 (12-20) BUN 16 (9-16) mg/dL Creatinine 0.84 (0.5-1.4) mg/dL Estim Creat Clear Calc TNP Estimated GFR > 60 Random Glucose 118 H (60-115) mg/dL Calcium 8.8 (8.4-10.2) mg/dL Total Bilirubin 0.2 (0.0-1.0) mg/dL Direct Bilirubin < 0.2 (0.0-0.5) mg/dL AST 69 H (5-31) U/L ALT 54 H (0-31) U/L Alkaline Phosphatase 65 (39-117) U/L Total Protein 6.7 (6.5-8.0) g/dL Albumin 4.1 (3.5-5.0) g/dL Ethyl Alcohol 257 mg/dL Independent Interpretation I performed an independent interpretation of an: EKG Interpretation: My independent interpretation patient's 12 EKG done at 03:32 hours is as follows: Normal sinus rhythm rate of 97, normal ND interval, QRS duration, prolonged QTC interval of 505 milliseconds, no ST segment elevation, no ST segment depression, no PACs, no PVCs no T-wave abnormalities. Independent Historian Clinical information obtained from an independent historian. History obtained from or confirmed by: EMS Chronic Conditions Patient?s care impacted by: Other (Alcohol use disorder) Discharge Plan Discharge Clinical Impression: Cocaine use Alcohol intoxication Qualifiers: Complication of substance-induced condition: uncomplicated Qualified Code(s): F 10.920 - Alcohol use, unspecified with intoxication, uncomplicated Patient Disposition: Home, Self-Care Instructions: Alcohol Intoxication (ED) Additional Instructions: The legal limit of intoxication when we check your blood is 80. Your blood alcohol level today was 257 suggesting which is 3-4 times above the legal limit for intoxication. Drinking large amounts of alcohol over time can lead to alcohol poisoning, cirrhosis of the liver and . You should consider getting help for your alcohol use disorder. Also, he reported taking prescription medications (gabapentin and tizanidine) with alcohol which can be dangerous. You also smoked crack cocaine which may have contained fentanyl which can cause you to from an overdose. You should consider getting help with your cocaine use disorder. Your are being discharged home with intranasal Narcan. If you are going to continue to use heroin cocaine or other street drugs, you should make sure that there is a sober person with you that is not using drugs and that this person can administer intranasal Narcan in the event that you stop breathing. Follow-up with your doctor in 2 days. Please return to the emergency department if your symptoms get worse or if you develop any symptoms that are concerning to you. Prescriptions: No Action albuterol sulfate 90 mcg/actuation HFA aerosol inhaler 1 puff inhalation Q6H PRN (Reason: wheezing) cyclobenzaprine 5 mg tablet 5 mg PO TID PRN (Reason: Pain)
[2023-08-20 04:35] LABS: Alanine Aminotransferase 54 U/L (0-31); Albumin Level 4.1 g/dL (3.5-5.0); Alkaline Phosphatase 65 U/L (39-117); Aspartate Amino Transferase 69 U/L (5-31); Bilirubin Direct < 0.2 mg/dL (0.0-0.5); Bilirubin Total 0.2 mg/dL (0.0-1.0); Total Protein 6.7 g/dL (6.5-8.0)
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
--- NOTE | 2023-08-20 07:31 | PC.NURSE ---
md stanton at bedside made aware of low bp sbp upper 80s to low 90s/40-50s. groggy but having a conversation w rn/doctor romy- nodding off mid conversation.
--- NOTE | 2023-08-20 07:50 | PC.NURSE ---
per md stanton no need to collect urine sample
--- NOTE | 2023-08-20 09:15 | PC.NURSE ---
on attempt to discharge: tor the provider aware pt sat 87%-low 90%s, wheezing, order not to d/c and for RT to give neb
[2023-08-20] MEDS: Albuterol/Iprat 2.5/0.5MG 3 ML AMPUL.NEB INHALE ×2 (09:45→14:09)
--- NOTE | 2023-08-20 11:46 | PC.NURSE ---
tor notified again sat 88%, sitting up in bed, pt states is feeling a little drowsy still, at times closing eyes during convos, tor notified, drinking fluids/eating sandwich, no distress noted.
[2023-08-20] MEDS: Naloxone HCl Nasal TAKE HOME 4 MG SPRAY 8 MG NOSTRILALT (13:23)
--- NOTE | 2023-08-20 13:23 | PC.NURSE ---
take home narcan given to patient
--- NOTE | 2023-08-20 14:00 | PC.NURSE ---
no distress, eating, drinking po fluids.
--- NOTE | 2023-08-20 16:02 | PC.NURSE ---
confirmed has all her belongings. left with her narcan- understands how to use in event of emergency. tamara'd home
== END 2023-08-20 16:08 | disposition home or self-care (01) ==
PROVIDERS: Emergency Medicine Emergency Medical Services; Emergency Provider Emergency Medicine
DX: F14.129 Cocaine abuse with intoxication, unspecified (principal); F10.129 Alcohol abuse with intoxication, unspecified; F12.90 Cannabis use, unspecified, uncomplicated; Y90.8 Blood alcohol level of 240 mg/100 ml or more; R94.31 Abnormal electrocardiogram [ECG] [EKG]; Z79.899 Other long term (current) drug therapy; F17.210 Nicotine dependence, cigarettes, uncomplicated
CPT/HCPCS: 36415; 71046; 80048; 80076; 80307; 85027; 93005; 94640; 99285

== ENCOUNTER → 2023-08-20 03:32 | Outpatient (BNV) | payer MEDICARE, MEDICAID, SELFPAY | PROVIDERS: Emergency Provider Emergency Medicine; Visit Provider Internal Medicine Cardiovascular Disease | DX: I45.81 Long QT syndrome (principal) | CPT/HCPCS: 93010 ==

== ENCOUNTER 2023-12-02 19:40 | Emergency (ER) | payer MEDICARE, MEDICAID, SELFPAY ==
--- NOTE | 2023-12-02 | ECG_ITS ---
Test Reason : ETOH Blood Pressure : / mmHG Vent. Rate : 098 BPM Atrial Rate : 098 BPM P-R Int : 146 ms QRS Dur : 076 ms QT Int : 366 ms P-R-T Axes : 076 059 065 degrees QTc Int : 467 ms Normal sinus rhythm Normal ECG When compared with ECG of 20-AUG-2023 03:32, No significant change was found Referred By: Generic ED Physician Electronically Signed By:ANA SANTANA MD
--- NOTE | ~2023-12-02 | XR_ITS ---
History: Pain status post fall. Exams: Right ankle 3 views lumbar sacral spine 3 views and pelvis with right hip 3 views FINDINGS: Pelvis and right imaging images no fracture or dislocation. Pubic bones intact. No deformity or dislocation. Lumbar spine imaging demonstrates spondylolysis L5 with grade 1 spondylolisthesis. Vertebral heights and disc spaces are preserved. Vertebral pedicles and spinous processes intact. Right ankle imaging images no deformity. Ankle mortise anatomic. No fracture. XR/XR hip RT w PEL1V IMPRESSION: 1. No fracture or dislocation right hip or pelvis. 2. Spondylolysis L5 with grade 1 spondylolisthesis.
--- NOTE | ~2023-12-02 | XR_ITS ---
History: Pain status post fall. Exams: Right ankle 3 views lumbar sacral spine 3 views and pelvis with right hip 3 views FINDINGS: Pelvis and right imaging images no fracture or dislocation. Pubic bones intact. No deformity or dislocation. Lumbar spine imaging demonstrates spondylolysis L5 with grade 1 spondylolisthesis. Vertebral heights and disc spaces are preserved. Vertebral pedicles and spinous processes intact. Right ankle imaging images no deformity. Ankle mortise anatomic. No fracture. XR/XR lumbar spine 2-3V IMPRESSION: 1. No fracture or dislocation right hip or pelvis. 2. Spondylolysis L5 with grade 1 spondylolisthesis.
--- NOTE | ~2023-12-02 | XR_ITS ---
History: Pain status post fall. Exams: Right ankle 3 views lumbar sacral spine 3 views and pelvis with right hip 3 views FINDINGS: Pelvis and right imaging images no fracture or dislocation. Pubic bones intact. No deformity or dislocation. Lumbar spine imaging demonstrates spondylolysis L5 with grade 1 spondylolisthesis. Vertebral heights and disc spaces are preserved. Vertebral pedicles and spinous processes intact. Right ankle imaging images no deformity. Ankle mortise anatomic. No fracture. XR/XR ankle RT min 3V IMPRESSION: 1. No fracture or dislocation right hip or pelvis. 2. Spondylolysis L5 with grade 1 spondylolisthesis.
--- NOTE | ~2023-12-02 | CT_ITS ---
EXAMINATION: CT HEAD WITHOUT CONTRAST CLINICAL INFORMATION: Fall, EtOH COMPARISON: None available. TECHNIQUE: Contiguous axial imaging was performed from the skull base to vertex without intravenous administration of contrast. This CT examination was performed using dose optimization techniques as appropriate, variously including the following: *Automated exposure control *Adjustment of mA and/or kV according to patient size (this includes techniques or standardized protocols for targeted exams where dose is matched to indication/reason for exam; i.e. extremities or head) *Use of iterative reconstruction technique DLP: 574 mGy-cm FINDINGS: There is no evidence of acute intracranial hemorrhage or territorial infarction. No abnormal mass-effect or midline shift is seen. Mark to white matter differentiation is well preserved. No extra-axial fluid collections are identified. The ventricles are normal in size. Small hypoattenuating focus in the right frontal centrum semiovale is suggestive of a chronic lacunar infarct. Mild volume loss is noted. The osseous structures and soft tissues are normal. The mastoid air cells and visualized portions of the paranasal sinuses are well-aerated. CT/CT head/brain wo IV con IMPRESSION: No acute intracranial pathology.
[2023-12-02 19:49] VITALS: BP 153/85; BP 160/106; PULSE 100; PULSE 108; RESP 20; TEMP 36.9; O2SAT 97; O2SAT 98; BMI 24.0
[2023-12-02 20:03] VITALS: PULSE 102
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
[2023-12-02 20:26] LABS: MANUAL DIFF FLAG NO
[2023-12-02 20:28] LABS: Basophils Absolute Auto 0.1 X10*3/uL (0.0-0.2); Basophils Percent Auto 1.3 % (0-2); Eosinophils Absolute Auto 0.2 X10*3/uL (0.0-0.4); Eosinophils Percent Auto 2.2 % (0-4); Hematocrit 43.2 % (37.0-47.0); Imm Gran Abs Auto 0.02 X10*3/uL (0.00-0.03); Imm Gran Pct Auto 0.3 % (0.0-0.4); Lymphocytes Absolute Auto 2.1 X10*3/uL (1.2-4.9); Lymphocytes Percent Auto 27.5 % (20-40); Mean Corpuscular HGB Conc 34.7 g/dl (31.0-35.0); Mean Corpuscular Hemoglobin 36.7 pg (27.0-33.0); Mean Corpuscular Volume 105.6 fL (80.0-98.0); Mean Platelet Volume 9.3 fL (9.4-12.3); Monocytes Absolute Auto 0.4 X10*3/uL (0.1-1.2); Monocytes Percent Auto 4.8 % (2-11); Neutrophils Absolute Auto 4.9 x10*3/uL (2.0-8.3); Neutrophils Percent Auto 63.9 % (45-73); Platelet Count 214 X10*3/uL (160-400); Red Blood Count 4.09 X10*6/uL (4.20-5.50); Red Cell Distribution Width 14.5 % (11.0-16.0); White Blood Count 7.7 X10*3/uL (4.8-10.8)
[2023-12-02 20:42] LABS: Alanine Aminotransferase 72 U/L (0-31); Alkaline Phosphatase 75 U/L (39-117); Anion Gap 15 (12-20); Aspartate Amino Transferase 104 U/L (5-31); Bilirubin Total 0.3 mg/dL (0.0-1.0); Blood Urea Nitrogen 12 mg/dL (9-16); Calcium 8.6 mg/dL (8.4-10.2); Carbon Dioxide 25 mmol/L (22-29); Chloride 112 mmol/L (96-108); Creatinine Clr Calc Pharmacy 89.2; Estimated Glomerular Filt Rate > 60; Ethanol 333 mg/dL; Glucose Random 89 mg/dL (60-115); Potassium 3.9 mmol/L (3.3-5.1); Sodium 148 mmol/L (135-145); Total Protein 6.6 g/dL (6.5-8.0)
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
[2023-12-02 21:20] LABS: HCG Quantitative < 2 mIU/mL
[2023-12-02 23:09] VITALS: BP 126/79; PULSE 108; RESP 19; TEMP 36.7; O2SAT 96
[2023-12-02 23:54] VITALS: BP 151/88; PULSE 109; RESP 20; TEMP 37; O2SAT 98
[2023-12-03 00:07] LABS: Appearance Urine Turbid; Color Urine Dark Yellow; Glucose Urine UA Negative (Negative); Leukocyte Esterase Urine Moderate (2+) (Negative); Nitrite Urine Negative (Negative); PH 5.5 (5.0-9.0); Specific Gravity - Urine >= 1.030 (1.005-1.025); UMIC TRIGGER UACC YES; Urine Blood Negative (Negative); Urine Ketones Trace mg/dL (Negative); Urine Protein 30 (1+) mg/dL (Neg-Trace)
[2023-12-03 00:10] LABS: Bacteria Urine 4+ (None Seen); Hyaline Casts Urine 0-2 /LPF (0-2); RBC Urine 0-2 /HPF (0-2); Squamous Epithelial Cell Urine 0-2 /HPF (0-2); UACC Culture Trigger YES; WBC Urine >50 /HPF (0-5)
[2023-12-03 00:14] LABS: Amphetamine Screen Urine Not Detected (Not Detect); Barbiturates, Urine Not Detected (Not Detect); Benzodiazepines Screen Urine Not Detected (Not Detect); Buprenorphine Scr Not Detected (Not Detect); Cannabinoid Screen Urine POSITIVE (Not Detect); Cocaine Screen Urine POSITIVE (Not Detect); Fentanyl, urine Not Detected (Not Detect); Methadone Screen, Urine Not Detected (Not Detect); Opiate Screen Urine Not Detected (Not Detect); Oxycodone Screen Urine Not Detected (Not Detect); Phencyclidine Screen Urine Not Detected (Not Detect)
[2023-12-03] MEDS: cefuroxime axetiL 250 MG TABLET PO (00:51)
--- NOTE | 2023-12-03 00:52 | PC.NURSE ---
pt medicated per mar, pt tolerated well with water.
[2023-12-03 02:00] VITALS: BP 115/77; PULSE 104; RESP 20; TEMP 36.6; O2SAT 98
[2023-12-03 04:00] VITALS: BP 124/85; PULSE 107; RESP 20; TEMP 36.7; O2SAT 98
[2023-12-03] MEDS: LORazepam 1 MG TABLET 2 MG PO ×2 (05:57→16:28)
[2023-12-03 06:00] VITALS: BP 139/85; PULSE 116; RESP 20; TEMP 36.8; O2SAT 97
--- NOTE | 2023-12-03 06:00 | PC.NURSE ---
pt actively tremulous and throwing up at this time, pt medicated per mar with PRN ativan to help with symptoms, pt tolerated well.
--- NOTE | 2023-12-03 06:18 | PC.NURSE ---
pt allowed to sleep at this time, no acute distress noted.
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
[2023-12-03 12:11] VITALS: BP 165/96; PULSE 91; RESP 18; TEMP 36.6; O2SAT 96
--- NOTE | 2023-12-03 16:58 | PC.NURSE ---
patient is not going to Detox today, she has to move. Information given to her from [facility] as to outpatient services. meds given prior to discharge.
[2023-12-03 17:05] VITALS: BP 110/60; PULSE 80; RESP 14; TEMP 37; O2SAT 98
== END 2023-12-03 17:06 | disposition home or self-care (01) ==
PROVIDERS: Physician Assistant; Emergency Provider Internal Medicine
DX: M54.9 Dorsalgia, unspecified (principal); N39.0 Urinary tract infection, site not specified; F10.20 Alcohol dependence, uncomplicated; Y90.8 Blood alcohol level of 240 mg/100 ml or more; M25.571 Pain in right ankle and joints of right foot; M25.551 Pain in right hip; Q60.0 Renal agenesis, unilateral
CPT/HCPCS: 36415; 70450; 72100; 73502; 73610; 80053; 80307; 81001; 84702; 85025; 87086; 87088; 87186; 93005; 99285

== ENCOUNTER → 2023-12-02 20:39 | Outpatient (BNV) | payer MEDICARE, MEDICAID, SELFPAY | PROVIDERS: Emergency Provider Internal Medicine; Visit Provider Internal Medicine Cardiovascular Disease | DX: F10.20 Alcohol dependence, uncomplicated (principal) | CPT/HCPCS: 93010 ==